=== PATIENT | male | born 1965 | race Caucasian/White ===

== ENCOUNTER → 2016-11-30 | Outpatient (CLI) | payer OTHER ==
[~2016-11-30] MED LIST: IBUP-103 PO; MULTTAB58 PO; NPR500 PO
[2016-11-30 12:46] LABS: BLOOD UREA NITROGEN 16 mg/dl (7-18); BUN/CREATININE RATIO 16.2 (10-20); CALCIUM 8.7 mg/dl (8.5-10.1); CARBON DIOXIDE 27 mmol/L (21-32); CHLORIDE 106 mmol/L (98-107); CHOLESTEROL 185 mg/dl (0-200); GLUCOSE 96 mg/dl (70-99); POTASSIUM 4.2 mmol/L (3.5-5.1); SODIUM 139 mmol/L (136-145); TRIGLYCERIDES 112 mg/dl (0-150); VERY LOW DENSITY LIPOPROT CALC 22 mg/dl
[2016-11-30 12:50] LABS: CHOLESTEROL/HDL RATIO 5.4; HDL CHOLESTEROL 34 mg/dl; LDL CHOLESTEROL CALCULATED 129 mg/dl
== END | disposition home or self-care (01) ==
LOC: C.LABPVFM 08:35
PROVIDERS: ATTEND Nurse Practitioner
DX: I10 Essential (primary) hypertension (principal)

== ENCOUNTER → 2017-08-19 | Outpatient (CLI) | payer OTHER | END | disposition home or self-care (01) | LOC: C.PATHSPEC 12:47 | PROVIDERS: ATTEND Plastic Surgery | DX: L85.9 Epidermal thickening, unspecified (principal) ==

== ENCOUNTER → 2017-10-29 | Outpatient (CLI) | payer OTHER ==
--- NOTE | 2017-10-29 11:55 | DIAGNOSTIC IMAGING REPORT ---
LEFT ANKLE 3 VIEWS HISTORY: LEFT ANKLE PAIN COMPARISON: Left ankle 09/02/2012. FINDINGS: No acute fracture or dislocation within the left ankle. Mild diffuse soft tissue swelling which has slightly progressed. Tiny ossific density at the lateral malleolus consistent with an old avulsion injury. No periarticular calcifications. Tiny subchondral erosions seen within the medial joint space involving the medial malleolus and medial talus. This is new from the prior study. Cartilage spaces are maintained. No radiopaque foreign bodies. IMPRESSION: 1. Diffuse soft tissue swelling. 2. No fractures. 3. Small subchondral lucencies within the medial joint space. This is nonspecific but could be due to degenerative change or erosions in the setting of an inflammatory arthropathy. Electronically signed by: Navi Kruger M.D. 10/29/2017 11:54 AM Dictated Date/Time: 10/29/2017 11:49 AM
== END | disposition home or self-care (01) ==
LOC: C.RADPV 11:31
PROVIDERS: ATTEND Family Medicine
DX: M25.572 Pain in left ankle and joints of left foot (principal); M79.89 Other specified soft tissue disorders; R93.7 Abnormal findings on diagnostic imaging of other parts of musculoskeletal system

== ENCOUNTER → 2017-11-18 | Outpatient (CLI) | payer OTHER ==
[2017-11-18 12:16] LABS: BASO % 0.1 %; BASO ABS # 0.01 K/uL (0-0.2); EOS % 2.3 %; EOS ABS # 0.16 K/uL (0-0.5); HEMATOCRIT 41.5 % (42-52); HEMOGLOBIN 14.3 g/dL (14.0-18.0); IG# 0.04 K/uL (0.00-0.02); LYMPH % 24.8 %; LYMPH ABS # 1.71 K/uL (1.2-3.4); MEAN CELL VOLUME 86.3 fL (80-100); MEAN CORPUSCULAR HEMOGLOBIN 29.7 pg (25-34); MEAN CORPUSCULAR HGB CONC 34.5 g/dl (32-36); MEAN PLATELET VOLUME 12.8 fL (7.4-10.4); MONO % 9.7 %; MONO ABS # 0.67 K/uL (0.11-0.59); NEUT % 62.5 %; PLATELET COUNT 165 K/uL (130-400); RED CELL DISTRIBUTION WIDTH CV 12.6 % (11.5-14.5); WHITE BLOOD COUNT 6.89 K/uL (4.8-10.8)
[2017-11-18 12:36] LABS: ALBUMIN 3.8 gm/dl (3.4-5.0); ALT/SGPT 31 U/L (12-78); CREATININE 0.93 mg/dl (0.60-1.40)
[2017-11-18 12:39] LABS: ALKALINE PHOSPHATASE 73 U/L (45-117); AST/SGOT 11 U/L (15-37); TOTAL PROTEIN 7.6 gm/dl (6.4-8.2); TRANSFERRIN 227 mg/dl (200-360); URIC ACID 6.3 mg/dl (2.6-7.2)
== END | disposition home or self-care (01) ==
LOC: C.LAB1850 09:46
PROVIDERS: ATTEND Internal Medicine Rheumatology
DX: M10.9 Gout, unspecified (principal); M25.572 Pain in left ankle and joints of left foot; M13.0 Polyarthritis, unspecified